=== PATIENT | male | born 1965 | race Caucasian/White ===

== ENCOUNTER 2023-04-03 13:29 | Outpatient (CLI) | payer OTHER, SELFPAY ==
--- NOTE | 2023-04-03 13:48 | XR_ITS ---
WS: [id number] Lumbar spine, 3 views, 04/03/2023 Clinical Data: LOW BACK PAIN Comparison: None. Findings: No compression fractures or subluxation is seen. There is degenerative disc narrowing at T12-L1 with anterior osteophytes. There are minimal anterior osteophytes at all the lumbar vertebral bodies. The transverse processes and SI joints are normal. There are surgical coils in the anterior lower abdominal wall. XR/XR lumbar spine 2-3V* [id number] Impression: 1. Degenerative disc narrowing at T12-L1. 2. Minimal anterior osteophytes L-1-L5.
== END 2023-04-03 13:30 | disposition home or self-care (01) ==
PROVIDERS: PCP Dermatology; Visit Provider Dermatology
DX: M54.50 Low back pain, unspecified (principal); M25.78 Osteophyte, vertebrae
CPT/HCPCS: 72100